=== PATIENT | male | born 1985 | race African-American/Black ===

== ENCOUNTER 2016-05-30 16:09 | Emergency (ER) | payer SELFPAY ==
[~2016-05-30] VITALS: Ht 170.2 cm; Wt 71.4 kg
[2016-05-30 19:07] LABS: BILIRUBIN NEGATIVE; BLOOD NEGATIVE; COLOR YELLOW ((YELLOW)); GLUCOSE (STRIP) NEGATIVE; KETONES NEGATIVE; LEUKOCYTES NEGATIVE; NITRITE NEGATIVE; PROTEIN (STRIP) NEGATIVE; UROBILINOGEN 0.2 MG/DL (0.2-1.0)
[2016-05-30 19:14] LABS: ADD MIUA? NO; UCUL ADDED? NO
[2016-05-30 20:54] VITALS: BP 120/66
[2016-06-01 13:46] LABS: CHLAMYDIA TRACHOMATIS NEGATIVE; NEISSERIA GONORRHOEAE NEGATIVE
== END 2016-05-30 21:00 | disposition home or self-care (01) ==
LOC: EME 16:09
DX: R30.0 Dysuria (principal)
CPT/HCPCS: 81003; 87491; 87591; 99281; 99283